=== PATIENT | male | born 1970 | race Caucasian/White ===

== ENCOUNTER 2018-07-15 12:14 | Inpatient (IN) | payer BC ==
[2018-07-12 14:34] LABS: BASOPHILS % 0.6 % (0.0-1.0); EOSINOPHILS % 0.6 % (0.0-6.0); HEMATOCRIT 46.3 % (38.2-49.6); HEMOGLOBIN 15.9 g/dL (14.0-18.0); LYMPHOCYTES # (AUTO) 1.7 (1.0-3.2); LYMPHOCYTES % 23.9 % (18.0-39.1); MEAN CORPUSCULAR HEMOGLOBIN 32.3 pg (28-32); MEAN CORPUSCULAR HGB CONC 34.3 g/dL (31-35); MEAN CORPUSCULAR VOLUME 94.1 fL (81-99); MONOCYTES # (AUTO) 0.6 (0.2-0.8); MONOCYTES % 8.2 % (4.4-11.3); NEUTROPHILS # (AUTO) 4.6 (2.1-6.9); NEUTROPHILS % 66.1 % (38.7-80.0); PLATELET COUNT 243 x10e3/uL (140-360); RED BLOOD COUNT 4.92 x10e6/uL (4.3-5.7); RED CELL DISTRIBUTION WIDTH 11.6 % (11.7-14.4)
[2018-07-12 14:47] LABS: INR 0.87; PROTHROMBIN TIME 12.7 seconds (11.9-14.5)
[2018-07-12 14:48] LABS: PARTIAL THROMBOPLASTIN TIME 27.9 seconds (23.8-35.5)
--- NOTE | 2018-07-12 14:59 | Diagnostic Imaging Report ---
EXAMINATION: CHEST 2 VIEWS INDICATION: Right renal mass. Preop COMPARISON: None FINDINGS: TUBES and LINES: None. LUNGS: Lungs are well inflated. Mild chronic appearing changes in the lungs. There is no evidence of pneumonia or pulmonary edema. PLEURA: No pleural effusion or pneumothorax. HEART AND MEDIASTINUM: The cardiomediastinal silhouette is unremarkable. BONES AND SOFT TISSUES: No acute osseous lesion. Soft tissues are unremarkable. UPPER ABDOMEN: No free air under the diaphragm. IMPRESSION: No acute thoracic abnormality. Signed by: Dr. Joes Brown M.D. on 07/12/2018 2:56 PM
[2018-07-12 15:46] LABS: ALANINE AMINOTRANSFERASE 36 IU/L (0-55); ALBUMIN 4.1 g/dL (3.5-5.0); ALBUMIN/GLOBULIN RATIO 1.3 (0.8-2.0); ALKALINE PHOSPHATASE 74 IU/L (40-150); ANION GAP 15.3 mmol/L (8-16); BLOOD UREA NITROGEN 14 mg/dL (7-26); BUN/CREATININE RATIO 13 (6-25); CALCIUM 9.4 mg/dL (8.4-10.2); CARBON DIOXIDE 24 mmol/L (22-29); CHLORIDE 105 mmol/L (98-107); CREATININE, SERUM 1.05 mg/dL (0.72-1.25); EST GLOMERULAR FILTRATION RATE > 60 ML/MIN (60-); GLUCOSE 91 mg/dL (74-118); POTASSIUM 4.3 mmol/L (3.5-5.1); SODIUM 140 mmol/L (136-145)
[~2018-07-15] VITALS: Ht 177.8 cm; Wt 105.5 kg
[2018-07-15] MEDS: D5.45%NS/KCL 20MEQ 1,000 ML IV SCH ×2 (03:30→18:01)
--- OUTSIDE RECORDS SUMMARY | 2018-07-15 12:17 | XMS REPORT ---
[facility] Address Unknown Phone Unavailable Care Team Providers Care Operations Manager Assistant Name Role Phone MICHAEL CHRISTENSEN Unavailable Unavailable Problems This patient has no known problems. Allergies, Adverse Reactions, Alerts This patient has no known allergies or adverse reactions. Medications This patient has no known medications. Results Test Description Test Time Test Comments Text Results Atomic Results Result Comments CHEST 2 VIEWS 2018-07-12 14:55:00 [facility] [address] [address] Patient Name: BLANCA MALHOTRA MR #: [id number] : 1970 Age/Sex: 48/M Req #: [id number] Adm Physician: Ordered by: MICHAEL CHRISTENSEN MD Report #: [id number] Location: OR Room/Bed: Procedure: [id number] DX/CHEST 2 VIEWS Exam Date: 07/12/18 Exam Time: 1430 REPORT STATUS: Signed EXAMINATION: CHEST 2 VIEWS INDICATION: Right renal mass. Preop COMPARISON: None FINDINGS: TUBES and LINES: None. LUNGS: Lungs are well inflated. Mild chronic appearing changes in the lungs. There is no evidence of pneumonia or pulmonary edema. PLEURA: No pleural effusion or pneumothorax. HEART AND MEDIASTINUM: The cardiomediastinal silhouette is unremarkable. BONES AND SOFT TISSUES: No acute osseous lesion. Soft tissues are unremarkable. UPPER ABDOMEN: No free air under the diaphragm. IMPRESSION: No acute thoracic abnormality. Signed by: Dr. Jose Brown M.D. on 07/12/2018 2:56 PM Dictated By: JOSE BROWN MD, MD [id number] Transcribed By: ARMANDO on 07/12/181455 COPY TO: MICHAEL CHRISTENSEN MD
--- OUTSIDE RECORDS SUMMARY | 2018-07-15 12:17 | XMS REPORT | Summary of Care ---
Author Author [facility] Organization [facility] Address Unknown Phone Unavailable Encounter HQ Encntr_aliamparo(FIN) [id number] Date(s): 03/17/16 - 03/17/16 [facility] [address] [place] [address]- Discharge Disposition: Home or Self Care Attending Physician: Mary Newton MD Vital Signs No data available for this section Problem List Condition Effective Dates Status Health Status Informant Obesity(Confirmed) Active Allergies, Adverse Reactions, Alerts Substance Reaction Severity Status NKDA Active Medications No data available for this section Results No data available for this section Immunizations No data available for this section Procedures No data available for this section Social History Social History Type Response Alcohol Current Smoking Status Never smoker; Exposure to Tobacco Smoke None; Cigarette Smoking Last 365 Days No; Reg Smoking Cessation Counseling No Assessment and Plan No data available for this section
--- OUTSIDE RECORDS SUMMARY | 2018-07-15 12:17 | XMS REPORT | Summary of Care ---
Author Author [facility] Organization [facility] Address Unknown Phone Unavailable Encounter DONTE Zacarias(LURDES) [id number] Date(s): 04/03/16 - 04/03/16 [facility] [address] [place] [address]- Discharge Disposition: Home or Self Care Attending Physician: Mary Newton MD Vital Signs No data available for this section Problem List Condition Effective Dates Status Health Status Informant Obesity(Confirmed) Active Allergies, Adverse Reactions, Alerts Substance Reaction Severity Status NKDA Active Medications No data available for this section Results ELECTROLYTES Most recent to 1 oldest [Reference Range]: Sodium Lvl [135-145 138 mEq/L mEq/L] (04/03/16 5:15 PM) Potassium Lvl 3.9 mEq/L [3.5-5.1 mEq/L] (04/03/16 5:15 PM) Chloride Lvl [95-109 107 mEq/L mEq/L] (04/03/16 5:15 PM) CO2 [24-32 mEq/L] 24 mEq/L (04/03/16 5:15 PM) AGAP [10.0-20.0 10.9 mEq/L mEq/L] (04/03/16 5:15 PM) CHEM PANEL Most recent to 1 2 oldest [Reference Range]: Creatinine Lvl 1.30 mg/dL [0.50-1.40 mg/dL] (04/03/16 5:15 PM) eGFR 65 mL/min/1.73m2 1 *NA* (04/03/16 5:15 PM) BUN [7-22 mg/dL] 16 mg/dL (04/03/16 5:15 PM) B/C Ratio [6-25] 12 (04/03/16 5:15 PM) Glucose Lvl [70-99 78 mg/dL mg/dL] (04/03/16 5:15 PM) Total Protein 7.0 g/dL [6.4-8.4 g/dL] (04/03/16 5:15 PM) Albumin Lvl [3.5-5.0 4.1 g/dL g/dL] (04/03/16 5:15 PM) Globulin [2.7-4.2 2.9 g/dL g/dL] (04/03/16 5:15 PM) A/G Ratio [0.7-1.6] 1.4 (04/03/16 5:15 PM) Calcium Lvl 8.7 mg/dL [8.5-10.5 mg/dL] (04/03/16 5:15 PM) ALT [0-65 unit/L] 51 unit/L (04/03/16 5:15 PM) AST [0-37 unit/L] 26 unit/L (04/03/16 5:15 PM) Alk Phos [39-136 74 unit/L 75 unit/L unit/L] (04/03/16 6:49 PM) (04/03/16 5:15 PM) Bili Total [0.2-1.3 0.5 mg/dL 0.5 mg/dL mg/dL] (04/03/16 6:49 PM) (04/03/16 5:15 PM) Bili Direct [0.0-0.3 0.2 mg/dL mg/dL] (04/03/16 6:49 PM) Bili Indirect 0.3 mg/dL [0.0-1.0 mg/dL] (04/03/16 6:49 PM) 1Result Comment: The eGFR is calculated using the CKD-EPI formula. In most young, healthy individuals the eGFR will be >90 mL/min/1.73m2. The eGFR declines with age. An eGFR of 60-89 may be normal in some populations, particularly the elderly, for whom the CKD-EPI formula has not been extensively validated. Use of the eGFR is not recommended in the following populations: Individuals with unstable creatinine concentrations, including patients and those with serious co-morbid conditions. Patients with extremes in muscle mass or diet. The data above are obtained from the National Kidney Disease Education Program ( NKDEP) which additionally recommends that when the eGFR is used in patients with extremes of body mass index for purposes of drug dosing, the eGFR should be mul tiplied by the estimated BMI. URINE CHEM Most recent to 1 2 oldest [Reference Range]: U Microalb 9.4 mg/L 9.4 mg/L *NA* *NA* (04/03/16 5:15 PM) (04/03/16 5:15 PM) U Alb/Crea [<=30.0 3.4 mcg/mg creat mcg/mg creat] (04/03/16 5:15 PM) U Creatinine 289.00 mg/dL 279.00 mg/dL *NA* *NA* (04/03/16 6:49 PM) (04/03/16 5:15 PM) U Protein 13.0 mg/dL *NA* (04/03/16 5:15 PM) URINE AND STOOL Most recent to 1 2 oldest [Reference Range]: UA Turbidity [Clear] Clear (04/03/16 5:15 PM) UA Color [Yellow] Yellow *NA* (04/03/16 5:15 PM) UA pH [5.0-8.0] 5.0 (04/03/16 5:15 PM) UA Spec Grav 1.024 [<=1.030] (04/03/16 5:15 PM) UA Glucose [Negative Negative mg/dL mg/dL] *NA* (04/03/16 5:15 PM) UA Blood [Negative] Negative (04/03/16 5:15 PM) UA Ketones [Negative Negative mg/dL mg/dL] *NA* (04/03/16 5:15 PM) UA Protein [Negative Negative mg/dL mg/dL] (04/03/16 5:15 PM) UA Urobilinogen <=1.0 mg/dL [0.1-1.0 mg/dL] *NA* (04/03/16 5:15 PM) UA Bili [Negative] Negative *NA* (04/03/16 5:15 PM) UA Leuk Est Negative [Negative] (04/03/16 5:15 PM) UA Nitrite Negative [Negative] (04/03/16 5:15 PM) UA WBC [0-5 /HPF] 1 /HPF (04/03/16 5:15 PM) UA RBC [0-2 /HPF] 1 /HPF (04/03/16 5:15 PM) UA Sq Epi [Few /LPF] Occasional /LPF *NA* (04/03/16 5:15 PM) Immunizations No data available for this section Procedures No data available for this section Social History Social History Type Response Alcohol Current Smoking Status Never smoker; Exposure to Tobacco Smoke None; Cigarette Smoking Last 365 Days No; Reg Smoking Cessation Counseling No Assessment and Plan No data available for this section
--- OUTSIDE RECORDS SUMMARY | 2018-07-15 12:17 | XMS REPORT | Summary of Care ---
Author Author [facility] Organization [facility] Address Unknown Phone Unavailable Encounter HQ Dipakr_narinder(FIN) [id number] Date(s): 08/15/17 - 08/15/17 [facility] [address] [place] [address], [address] [place] [address]- [phone] Attending Physician: Mary Newton MD Vital Signs No data available for this section Problem List Condition Effective Dates Status Health Status Informant Vitamin B 12 Active deficiency(Confirmed ) Low serum vitamin Active D(Confirmed) Elevated BP without Active diagnosis of hypertension(Confirm ed) Knee pain(Confirmed) Active Obesity(Confirmed) Active Annual physical Active exam(Confirmed) Diabetes mellitus Active screening(Confirmed) Tick bite(Confirmed) Active Allergies, Adverse Reactions, Alerts Substance Reaction Severity Status NKDA Active Medications No data available for this section Results No data available for this section Immunizations Given and Recorded Vaccine Date Status Refusal Reason influenza virus vaccine, inactivated 05/14/17 Given Procedures Procedure Date Related Diagnosis Body Site Eye examination 2015 Social History Social History Type Response Alcohol Current Smoking Status Never smoker; Exposure to Tobacco Smoke None; Cigarette Smoking Last 365 Days No; Reg Smoking Cessation Counseling No Assessment and Plan No data available for this section
--- OUTSIDE RECORDS SUMMARY | 2018-07-15 12:17 | XMS REPORT | Continuity of Care Document ---
Author Author [facility] Address Unknown Phone Unavailable Problems Problem Status Onset Date Classification Date Reported Comments Source LIPOID DISORDER Active 03/24/2016 [facility] Vitamin B 12 deficiency Active Problem 08/18/2017 [facility] Low serum vitamin D Active Problem 08/18/2017 [facility] Elevated BP without diagnosis of hypertension Active Problem 08/18/2017 [facility] Knee pain Active Problem 08/18/2017 [facility] Obesity Active Problem 08/18/2017 [facility] Diabetes mellitus screening Active Problem 08/18/2017 [facility] Tick bite Active Problem 08/18/2017 [facility] R42 Active [facility] DIZZINESS AND GIDDINESS Active [facility] Medications Medication Details Route Status Patient Instructions Ordering Provider Order Date Source Allergies, Adverse Reactions, Alerts Substance Category Reaction Severity Reaction type Status Date Reported Comments Source Immunizations Immunization Date Given Site Status Last Updated Comments Source influenza virus vaccine, inactivated 05/14/2017 Left Deltoid completed [facility] Results Order Name Results Value Reference Range Date Interpretation Comments Source CHEM PANEL Bili Indirect 0.3 mg/dL 0.0 - 1.0 04/03/2016 [facility] CHEM PANEL Bili Direct 0.2 mg/dL 0.0 - 0.3 04/03/2016 [facility] CHEM PANEL Bili Total 0.5 mg/dL 0.2 - 1.3 04/03/2016 [facility] CHEM PANEL Alk Phos 74 unit/L 39 - 136 04/03/2016 [facility] URINE CHEM U Creatinine 289.00 mg/dL 04/03/2016 [facility] CHEM PANEL eGFR 65 mL/min/1.73m2 04/03/2016 Result Comment: The eGFR is calculated using the [...] from the National Kidney Disease Education Program (NKDEP) which additionally recommends that when the eGFR is used in patients with extremes of body mass index for purposes of drug dosing, the eGFR should be multiplied by the estimated BMI. [facility] CHEM PANEL Bili Total 0.5 mg/dL 0.2 - 1.3 04/03/2016 [facility] CHEM PANEL AGAP 10.9 meq/L 10.0 - 20.0 04/03/2016 [facility] CHEM PANEL Alk Phos 75 unit/L 39 - 136 04/03/2016 [facility] CHEM PANEL ALT 51 unit/L 0 - 65 04/03/2016 [facility] CHEM PANEL AST 26 unit/L 0 - 37 04/03/2016 [facility] CHEM PANEL A/G Ratio 1.4 0.7 - 1.6 04/03/2016 [facility] CHEM PANEL Globulin 2.9 g/dL 2.7 - 4.2 04/03/2016 [facility] CHEM PANEL B/C Ratio 12 6 - 25 04/03/2016 [facility] CHEM PANEL Calcium Lvl 8.7 mg/dL 8.5 - 10.5 04/03/2016 [facility] CHEM PANEL Albumin Lvl 4.1 g/dL 3.5 - 5.0 04/03/2016 [facility] CHEM PANEL Total Protein 7.0 g/dL 6.4 - 8.4 04/03/2016 [facility] CHEM PANEL CO2 24 meq/L 24 - 32 04/03/2016 [facility] CHEM PANEL Chloride Lvl 107 meq/L 95 - 109 04/03/2016 [facility] CHEM PANEL Glucose Lvl 78 mg/dL 70 - 99 04/03/2016 [facility] CHEM PANEL Creatinine Lvl 1.30 mg/dL 0.50 - 1.40 04/03/2016 [facility] CHEM PANEL BUN 16 mg/dL 7 - 22 04/03/2016 [facility] CHEM PANEL Potassium Lvl 3.9 meq/L 3.5 - 5.1 04/03/2016 [facility] CHEM PANEL Sodium Lvl 138 meq/L 135 - 145 04/03/2016 [facility] URINE AND STOOL UA Urobilinogen <=1.0 mg/dL 0.1 - 1.0 04/03/2016 [facility] URINE AND STOOL UA Blood Negative (8/22/16 5:15 PM) Negative 04/03/2016 [facility] URINE AND STOOL UA Leuk Est Negative (04/03/16 5:15 PM) Negative 04/03/2016 [facility] URINE AND STOOL UA Nitrite Negative (04/03/16 5:15 PM) Negative 04/03/2016 [facility] URINE AND STOOL UA Ketones Negative mg/dL Negative mg/dL 04/03/2016 [facility] URINE AND STOOL UA Bili Negative *NA* (04/03/16 5:15 PM) Negative 04/03/2016 [facility] URINE AND STOOL UA Glucose Negative mg/dL Negative mg/dL 04/03/2016 [facility] URINE AND STOOL UA Protein Negative mg/dL Negative mg/dL 04/03/2016 [facility] URINE AND STOOL UA Turbidity Clear (04/03/16 5:15 PM) Clear 04/03/2016 [facility] URINE AND STOOL UA Color Yellow *NA* (04/03/16 5:15 PM) Yellow 04/03/2016 [facility] URINE AND STOOL UA RBC 1 /HPF 0 - 2 04/03/2016 [facility] URINE AND STOOL UA WBC 1 /HPF 0 - 5 04/03/2016 [facility] URINE AND STOOL UA Sq Epi Occasional /LPF Few /LPF 04/03/2016 [facility] URINE AND STOOL UA Spec Grav 1.024 <=1.030 04/03/2016 [facility] URINE AND STOOL UA pH 5.0 5.0 - 8.0 04/03/2016 [facility] URINE CHEM U Creatinine 279.00 mg/dL 04/03/2016 [facility] URINE CHEM U Microalb 9.4 mg/L 04/03/2016 [facility] URINE CHEM U Alb/Crea 3.4 mcg/mg creat <=30.0 mcg/mg creat 04/03/2016 [facility] URINE CHEM U Microalb 9.4 mg/L 04/03/2016 [facility] URINE CHEM U Protein 13.0 mg/dL 04/03/2016 [facility] Vital Signs Vital Sign Value Date Comments Source Encounters Location Location Details Encounter Type Encounter Number Reason For Visit Attending Provider ADM Date DC Date Status Source [facility] Outpatient [id number] Terri Thibodeaux 03/17/2016 03/18/2016 [facility] [id number] TERRI MURILLO 03/24/2016 Active [facility] [id number] Terri Thibodeaux 04/03/2016 04/04/2016 [facility] Outpatient [id number] TERRI MURILLO 05/04/2016 Active [facility] Outpatient [id number] TERRI MURILLO 07/04/2016 Active [facility] Outpatient [id number] TERRI MURILLO 12/28/2016 Active [facility] Outpatient [id number] TERRI MURILLO 05/14/2017 Active [facility] Outpatient [id number] TERRI MURILLO 08/15/2017 Active [facility] Pre-Reg [id number] Terri Thibodeaux 08/15/2017 08/15/2017 [facility] Procedures Procedure Code Date Perfomer Comments Source Eye examination [id number] 08/13/2015 [facility]
[2018-07-15] MEDS ORDERED: CEFAZOLIN SOD 2 GM/D5W 50ML 50 ML IV ONE (12:23)
[2018-07-15] MEDS ORDERED: NALOXONE HCL INJ 0.4 MG/ML AMP IV PRN (15:45)
[2018-07-15] MEDS ORDERED: DIPHENHYDRAMINE HCL INJ 50 MG/ML VIAL IM PRN (15:45)
[2018-07-15] MEDS ORDERED: ACETAMINOPHEN 1000 MG/100 ML IV PRN (15:45)
[2018-07-15] MEDS ORDERED: SODIUM CHLORIDE 0.9% 250ML IRRIG IR SCH (15:45)
[2018-07-15] MEDS ORDERED: ONDANSETRON HCL INJ 2 MG/ML VIAL IV PRN (15:45)
[2018-07-15] MEDS ORDERED: MORPHINE SULFATE 1 MG/ML 30ML PCA ONE (15:57)
--- NOTE | 2018-07-15 16:18 | Diagnostic Imaging Report ---
Examination: Single AP view of the chest. COMPARISON: 07/12/2018 INDICATION: Concern for pneumothorax, right renal mass DISCUSSION: Lungs are reasonably well inflated. No right pneumothorax per clinical query. Striated lucencies projecting over the right lower lung may reflect subcutaneous gas in the right flank. Cardiomediastinal contour is within normal limits when accounting for portable, AP technique. No acute osseous abnormality. IMPRESSION: No acute cardiopulmonary abnormality. No pneumothorax per clinical query. Signed by: Dr. Johnny Lambert M.D. on 07/15/2018 4:15 PM
[2018-07-15 17:03] VITALS: BP 118/70
[2018-07-15 18:01] VITALS: BP 118/70
[2018-07-15] MEDS ORDERED: FENTANYL CITRATE/PF 100MCG/2 ML INJ ONE (19:12)
[2018-07-15] MEDS ORDERED: MIDAZOLAM HCL 2 MG/2 ML VIAL ONE (19:12)
[2018-07-15] MEDS ORDERED: MORPHINE SULFATE INJ 10 MG/ML ONE (19:12)
[2018-07-15] MEDS ORDERED: GLYCOPYRROLATE INJ 1MG/ 5 ML SYR ONE (19:58)
[2018-07-15] MEDS ORDERED: ONDANSETRON HCL INJ 2 MG/ML VIAL ONE (19:58)
[2018-07-15] MEDS ORDERED: ACETAMINOPHEN 1000 MG/100 ML IV ONE (19:58)
[2018-07-15] MEDS ORDERED: DEXAMETHASONE SOD PHOS INJ 4 MG/ML VIAL ONE (19:58)
[2018-07-15] MEDS ORDERED: NEOSTIGMINE 5 MG/5ML SYR ONE (19:58)
[2018-07-15] MEDS ORDERED: LIDOCAINE HCL 2% LOCAL INJ 5 ML SDV VIAL INJ ONE (19:58)
[2018-07-15] MEDS ORDERED: PROPOFOL IV EMULSION 10 MG/ML 20 ML VIAL ONE (19:58)
[2018-07-15] MEDS ORDERED: SEVOFLURANE INHAL SOLN 250 ML PEN BTL ONE (19:58)
[2018-07-15] MEDS ORDERED: ROCURONIUM BROMIDE 10 MG/ML 5ML VIAL ONE (19:58)
[2018-07-15 20:00] VITALS: BP 136/81
--- NOTE | 2018-07-15 20:39 | Operative Report ---
DATE OF PROCEDURE: July 15, 2018 PREOPERATIVE DIAGNOSIS: Right renal mass. POSTOPERATIVE DIAGNOSIS: Right renal mass. OPERATION PERFORMED: Complicated right radical nephrectomy. WOOD TOOL MAKER: Dr. Daron Romeo. ANESTHESIA: General. COMPLICATIONS: None. CLINICAL SUMMARY: Carlyle Shah is a 48-year-old man who on chest CT was noted to have a right renal mass. He underwent an abdominal CT which confirmed this finding. The left kidney appeared unremarkable. The mass was large and was intrarenal and it was not amenable to partial nephrectomy. Options were discussed with the patient and he elected to proceed with radical nephrectomy as recommended. He is aware of the risks of bleeding, infection, injury to adjacent structures, need for additional procedures. He is also aware of the fact that he will have only one kidney and that could potentially result in renal failure in the future should anything happen to this remaining kidney. He understood all these risks and elected to proceed. OPERATIVE PROCEDURE IN DETAIL: Informed consent was verified. Carlyle Shah was properly identified, taken to the operating room and placed on the operating table in the supine position. General anesthesia was uneventfully begun. The patient was then carefully and gently repositioned following placement of Billingsley catheter into a flank position with all pressure points very carefully well padded. His chest, back and abdomen were shaved, prepared and draped in usual sterile fashion. An 11th rib incision was then made. We did not make a 12th rib incision because it was too low for this upper pole tumor in this very large patient and the 11th rib was in proper position for this procedure. This incision was carried through all layers of the chest and abdominal wall. An extraperitoneal, extra pleural approach was utilized. We isolated the 11th rib and resected it and then we proceeded with opening up the rest of the incision. The patient was large. His sheer size and obesity and the thickness of his muscles made the procedure more challenging. We carefully isolated the right kidney. We ligated and divided the right ureter. We then identified, doubly ligated with silk suture proximally as well as placed Hemoclips and divided the large single renal artery. We then did a cephalad dissection. The tumor appeared intrarenal and did not seem to bulge, and, therefore, we are able to spare the majority of the right adrenal gland. Once all the dissection was complete, we ligated and divided the renal vein. We ligated the renal vein with silk and Hemoclips and divided it as well. The specimen was thus removed from the field. We bivalved the specimen to examine the location of the tumor and, indeed, this appeared to be a suspicious lesion, and was not amenable to a partial nephrectomy. Copious irrigation was performed. Due to the oozing nature of the patient's subcutaneous adipose tissue as well as the ooziness of his very thick muscle layers, we placed a Tyrone drain through a separate stab incision and secured it to the skin with a nylon suture. We then verified hemostasis yet again, and we closed the patient in layers utilizing heavy Vicryl suture in interrupted [id number] fashion for the muscle layers and the skin was approximated with skin angie. Sterile dressings were applied. The patient was uneventfully reversed from anesthesia and taken to the recovery room in stable condition. There were no complications during the procedure. The patient tolerated the procedure well. Sponge, needle and instrument counts were correct x2 at the end of the case. Estimated blood loss was 500 mL. Explicit postoperative orders were given, and will proceed with routine postoperative care as we eagerly await our histopathological report. Job#: [id number] GH cc: DR. JUDY ESPINO
[2018-07-15] MEDS: CEFAZOLIN SOD 1 GM/D5W 50ML 50 ML IV SCH (22:18)
[2018-07-16] VITALS: BP 133/60
[2018-07-16] MEDS ORDERED: CEFAZOLIN SOD 1 GM/D5W 50ML 50 ML IV SCH
[2018-07-16 04:00] VITALS: BP 119/70
[2018-07-16] MEDS: CEFAZOLIN SOD 1 GM/D5W 50ML 50 ML IV SCH ×3 (05:59→23:57)
[2018-07-16 06:16] LABS: BASOPHILS % 0.2 % (0.0-1.0); HEMATOCRIT 38.9 % (38.2-49.6); HEMOGLOBIN 13.3 g/dL (14.0-18.0); LYMPHOCYTES # (AUTO) 0.7 (1.0-3.2); MEAN CORPUSCULAR HEMOGLOBIN 32.4 pg (28-32); MEAN CORPUSCULAR HGB CONC 34.2 g/dL (31-35); MEAN CORPUSCULAR VOLUME 94.9 fL (81-99); MONOCYTES % 9.1 % (4.4-11.3); NEUTROPHILS # (AUTO) 9.4 (2.1-6.9); NEUTROPHILS % 84.3 % (38.7-80.0); PLATELET COUNT 255 x10e3/uL (140-360); RED CELL DISTRIBUTION WIDTH 11.8 % (11.7-14.4)
[2018-07-16] MEDS: MORPHINE SULFATE 1 MG/ML 30ML PCA IV PRN ×3 (06:18→22:31)
[2018-07-16 06:32] LABS: ANION GAP 9.6 mmol/L (8-16); CREATININE, SERUM 1.42 mg/dL (0.72-1.25); POTASSIUM 4.6 mmol/L (3.5-5.1)
[2018-07-16 08:00] VITALS: BP 122/77
[2018-07-16 12:00] VITALS: BP 114/64
[2018-07-16] MEDS: D5.45%NS/KCL 20MEQ 1,000 ML IV SCH ×3 (12:20→22:30)
[2018-07-16 16:00] VITALS: BP 95/55
[2018-07-16 20:00] VITALS: BP 103/55
[2018-07-16] MEDS ORDERED: SODIUM CHLORIDE 0.9% 50ML 50 ML ONE (23:55)
[2018-07-17] VITALS (8 sets, daily range): BP systolic 111–138; BP diastolic 61–84
[2018-07-17 06:14] LABS: BASOPHILS % 0.2 % (0.0-1.0); EOSINOPHILS % 0.5 % (0.0-6.0); HEMATOCRIT 38.1 % (38.2-49.6); HEMOGLOBIN 12.7 g/dL (14.0-18.0); LYMPHOCYTES # (AUTO) 1.3 (1.0-3.2); LYMPHOCYTES % 15.8 % (18.0-39.1); MEAN CORPUSCULAR HEMOGLOBIN 32.3 pg (28-32); MEAN CORPUSCULAR HGB CONC 33.3 g/dL (31-35); MEAN CORPUSCULAR VOLUME 96.9 fL (81-99); MONOCYTES # (AUTO) 0.9 (0.2-0.8); MONOCYTES % 10.1 % (4.4-11.3); NEUTROPHILS # (AUTO) 6.1 (2.1-6.9); PLATELET COUNT 197 x10e3/uL (140-360); RED BLOOD COUNT 3.93 x10e6/uL (4.3-5.7); RED CELL DISTRIBUTION WIDTH 11.9 % (11.7-14.4)
[2018-07-17 06:52] LABS: ANION GAP 9.3 mmol/L (8-16); CALCIUM 8.5 mg/dL (8.4-10.2); CREATININE, SERUM 1.39 mg/dL (0.72-1.25); POTASSIUM 4.3 mmol/L (3.5-5.1)
[2018-07-17] MEDS ORDERED: HYDROMORPHONE 1MG/1ML INJ IV PRN (08:45)
[2018-07-17] MEDS ORDERED: HYDROCODONE/APAP 10MG-325MG TAB PO PRN (08:45)
[2018-07-17] MEDS ORDERED: HYDROMORPHONE 2MG/ML 2 MG/ML ML IV PRN (09:00)
[2018-07-17] MEDS: CEFAZOLIN SOD 1 GM/D5W 50ML 50 ML IV SCH ×2 (09:49→17:22)
[2018-07-17] MEDS: D5.45%NS/KCL 20MEQ 1,000 ML IV SCH ×2 (09:50→21:04)
[2018-07-17] MEDS ORDERED: BISACODYL 10 MG SUPP PR PRN (11:00)
[2018-07-17] MEDS ORDERED: ACETAMINOPHEN/CODEINE 300MG - 30MG TAB PO PRN (11:00)
[2018-07-17] MEDS ORDERED: BISACODYL 10 MG SUPP PR ONE (11:30)
[2018-07-17] MEDS: SENNOSIDES 8.6 MG TAB PO SCH ×2 (12:32→17:22)
[2018-07-17] MEDS: DOCUSATE SODIUM 100 MG CAP PO SCH (17:22)
[2018-07-18] VITALS (7 sets, daily range): BP systolic 122–151; BP diastolic 73–87
[2018-07-18] MEDS: CEFAZOLIN SOD 1 GM/D5W 50ML 50 ML IV SCH ×3 (00:10→16:34)
[2018-07-18 05:53] LABS: BASOPHILS % 0.4 % (0.0-1.0); EOSINOPHILS # (AUTO) 0.1 (0.0-0.4); EOSINOPHILS % 1.3 % (0.0-6.0); HEMATOCRIT 37.2 % (38.2-49.6); HEMOGLOBIN 12.5 g/dL (14.0-18.0); LYMPHOCYTES # (AUTO) 1.2 (1.0-3.2); LYMPHOCYTES % 14.5 % (18.0-39.1); MEAN CORPUSCULAR HEMOGLOBIN 32.2 pg (28-32); MEAN CORPUSCULAR HGB CONC 33.6 g/dL (31-35); MEAN CORPUSCULAR VOLUME 95.9 fL (81-99); MONOCYTES # (AUTO) 0.8 (0.2-0.8); NEUTROPHILS # (AUTO) 6.1 (2.1-6.9); NEUTROPHILS % 73.2 % (38.7-80.0); PLATELET COUNT 212 x10e3/uL (140-360); RED BLOOD COUNT 3.88 x10e6/uL (4.3-5.7)
[2018-07-18 06:13] LABS: ANION GAP 12.3 mmol/L (8-16); CALCIUM 9.1 mg/dL (8.4-10.2); CREATININE, SERUM 1.45 mg/dL (0.72-1.25); POTASSIUM 4.3 mmol/L (3.5-5.1)
[2018-07-18] MEDS: DOCUSATE SODIUM 100 MG CAP PO SCH ×2 (08:42→16:34)
[2018-07-18] MEDS: SENNOSIDES 8.6 MG TAB PO SCH ×2 (08:42→16:34)
--- NOTE | 2018-07-18 09:59 | Consultation ---
DATE OF CONSULTATION: July 18, 2018 RENAL CONSULTATION HISTORY OF PRESENT ILLNESS: A 48-year-old male known to me from outpatient clinic was admitted to [facility] on July 15, 2018, for right radical nephrectomy. The patient was initially seen in my office for a renal mass consistent with renal cell carcinoma. The patient underwent surgery without complications. He had an elevated BUN and creatinine, and nephrology consultation was called. REVIEW OF SYSTEMS: As above. Some postoperative soreness. Otherwise, all other systems negative. PAST MEDICAL HISTORY: Renal mass. PAST SURGICAL HISTORY: Right radical nephrectomy as above. SOCIAL HISTORY: Social drinker. No tobacco. No IV drugs. FAMILY HISTORY: No family history of kidney disease or kidney cancer. ALLERGIES: NO KNOWN DRUG ALLERGIES. CURRENT MEDICATIONS: See list. PHYSICAL EXAMINATION VITALS: Blood pressure 132/73, pulse 92, respiratory rate 18, temperature 97.4. GENERAL: No apparent distress. HEENT: Oropharynx clear. No scleral icterus. No papilledema. NECK: Supple. No elevation of jugular venous pressure. No lymphadenopathy. CHEST: Clear to auscultation anteriorly bilaterally. CARDIOVASCULAR: Regular rate and rhythm. ABDOMEN: Soft. Positive bowel sounds. No tenderness. No rebound. EXTREMITIES: No edema. No clubbing. No cyanosis. SKIN: Warm. LABS: Sodium 135, potassium 4.3, chloride 102, CO2 25, BUN 10, creatinine 1.45. White count 8.2, hemoglobin 12.5, hematocrit 37.2, and platelets 212,000. ASSESSMENT AND PLAN 1. Chronic kidney disease, stage 3: Status post nephrectomy. The patient has a followup appointment at my office the beginning of next year. I instructed him no nonsteroidal anti-inflammatory drug. Take Tylenol or narcotics for pain. 2. Euvolemic on exam. 3. Renal mass: Pathology pending. Job#: [id number] [place]
[2018-07-18] MEDS ORDERED: MAGNESIUM/ALUMINUM/SIMETHICONE 30 ML UDC PO PRN (16:45)
[2018-07-19] VITALS: BP 139/75
[2018-07-19] MEDS: CEFAZOLIN SOD 1 GM/D5W 50ML 50 ML IV SCH ×2 (00:09→09:00)
[2018-07-19 04:00] VITALS: BP 143/93
[2018-07-19 05:57] LABS: BASOPHILS % 0.5 % (0.0-1.0); EOSINOPHILS # (AUTO) 0.2 (0.0-0.4); EOSINOPHILS % 1.8 % (0.0-6.0); HEMATOCRIT 37.1 % (38.2-49.6); HEMOGLOBIN 12.5 g/dL (14.0-18.0); LYMPHOCYTES # (AUTO) 1.6 (1.0-3.2); LYMPHOCYTES % 18.6 % (18.0-39.1); MEAN CORPUSCULAR HEMOGLOBIN 31.6 pg (28-32); MEAN CORPUSCULAR HGB CONC 33.7 g/dL (31-35); MEAN CORPUSCULAR VOLUME 93.9 fL (81-99); MONOCYTES # (AUTO) 0.9 (0.2-0.8); MONOCYTES % 9.9 % (4.4-11.3); NEUTROPHILS % 68.4 % (38.7-80.0); PLATELET COUNT 231 x10e3/uL (140-360); RED BLOOD COUNT 3.95 x10e6/uL (4.3-5.7); RED CELL DISTRIBUTION WIDTH 11.7 % (11.7-14.4)
[2018-07-19 06:29] LABS: ANION GAP 14.5 mmol/L (8-16); CALCIUM 9.1 mg/dL (8.4-10.2); CREATININE, SERUM 1.44 mg/dL (0.72-1.25); POTASSIUM 4.5 mmol/L (3.5-5.1)
[2018-07-19 08:20] VITALS: BP 135/75
[2018-07-19] MEDS: DOCUSATE SODIUM 100 MG CAP PO SCH (09:00)
[2018-07-19] MEDS: SENNOSIDES 8.6 MG TAB PO SCH (09:00)
[2018-07-19 09:18] VITALS: BP 135/75
[2018-07-19 12:00] VITALS: BP 122/82
[2018-07-19] MEDS ORDERED: TYLENOL WITH C1 EACH PO (15:08)
[2018-07-19] MEDS ORDERED: COLACE100 MG PO (15:09)
== END 2018-07-19 15:41 | disposition home health service (06) | DRG 657 ==
LOC: OR 12:14 → PACU V 15:42 → MED/SURG 16:59
PROVIDERS: ADMIT Urology; ATTEND Urology
PROC: 0GB30ZZ Excision of Right Adrenal Gland, Open Approach (ICD-10-PCS; 2018-07-15)
PROC: 0TT00ZZ Resection of Right Kidney, Open Approach (ICD-10-PCS; principal; 2018-07-15 13:00)
DX: C64.1 Malignant neoplasm of right kidney, except renal pelvis (principal); N17.9 Acute kidney failure, unspecified; E87.1 Hypo-osmolality and hyponatremia; R31.9 Hematuria, unspecified; N18.3 Chronic kidney disease, stage 3 (moderate)
CPT/HCPCS: 36415; 71045; 71046; 80048; 80053; 82552; 82948; 83735; 85025; 85610; 85730; 86850; 86900; 86920; 88307; 88309; 93005; 96361; 97139; J0690; J1100; J2001; J2250; J2270; J2405